=== PATIENT | male | born 1970 | race Caucasian/White ===

== ENCOUNTER 2023-04-25 12:10 | Emergency (ER) | payer SELFPAY ==
[2023-04-25 12:11] VITALS: BP 137/95
[2023-04-25] MEDS: ADACEL 0.5 ML IM (14:16)
--- NOTE | 2023-04-25 14:21 | ED.GENMED ---
History of Present Illness
General
Chief Complaint: Fall
Source: patient
Exam Limitations: none
Time Seen by Provider: 04/25/23 12:22
Nursing documentation reviewed up to this point in time: agreed with
Travel History
Have you had any contact with someone who has COVID-19?: No
Do you have any symptoms of coronavirus? Fever > 100 degrees, chills, cough, shortness of breath, sore throat, loss of taste or smell, muscle aches, or headache?: No
History of Present Illness
History of Present Illness:
53-year-old male without significant past medical history presenting to the emergency department after slipping on ice hitting the back of his head. Started to bleed from his head denies any loss of consciousness no nausea vomiting no neck pain no
numbness or weakness no additional concerns. Not on blood thinners.
Review of Systems
Review of Systems
Allergies reviewed?: Yes
All Other Systems: ROS reviewed and negative except as documented in HPI and ROS
Phy Exam
Physical Exam
Physical Exam:
GENERAL: Alert , in no apparent distress
EYE: pupils equal and reactive
NECK: Supple, no significant adenopathy.
ENT: Posterior scalp with 2 parallel lacerations 3 cm each. Subcutaneous in depth. o/p clr, mmm.
CARDIAC: Regular rate and rhythm .
LUNGS: Clear breath sounds bilaterally, no acute respiratory distress, no wheezes/rales/rhonchi
ABDOMEN: Soft, without focal tenderness, no r/g, no cvat
NEUROLOGICAL: Alert and oriented, no focal neuro deficits
SKIN: Warm and dry, skin intact.
MUSCULOSKELETAL: No edema, well perfused.
PSYCH: Normal and appropriate interaction.
Course
Orders/Labs/Results
Orders:
Orders
04/25/23 13:40
Tetanus/Diphth/Acelpertussis [Adacel] 0.5 ml IM .ONCE ONE
Vital Signs
Initial and Last Documented VS:
Initial Vital Signs
Temp Pulse Resp BP Pulse Ox
98.1 F 85 18 137/95 98
04/25/23 12:11 04/25/23 12:11 04/25/23 12:11 04/25/23 12:11 04/25/23 12:11
Last Documented Vital Signs
Temp Pulse Resp BP Pulse Ox
98.1 F 85 18 137/95 98
04/25/23 12:11 04/25/23 12:11 04/25/23 12:11 04/25/23 12:11 04/25/23 12:11
Procedures
Laceration Closure
Middle Posterior Scalp:
Status of Wound: clean
Size of Wound in cm: 6
Description of Wound Edges: sharp
Preparation: cleaned with saline
Anesthesia: 1% Lidocaine with epi
Revision/Debridement: routine- no revision
Wound exploration: explored to base- no FB
Type of Closure: single layer closure
Skin Closure Material: 4-0 chromic gut
Number of sutures: 7
MDM/Problems Addressed
MDM/Problems Addressed:
53-year-old male presenting to the emergency department after a ground-level fall hitting the back of his head denies loss of consciousness nausea vomiting numbness weakness normal neurologic evaluation here does have 2 lacerations to the posterior
scalp a total of 6 cm subcutaneous in depth cleaned thoroughly closed with 7 total absorbable sutures. Stable for outpatient management no signs of internal injury or significant neck injury no additional concerns return precautions given. Given
an updated tetanus shot today.
*Critical Care Note
Total Time (30-74mins, 75-104mins- exclusive of procedures): Not Applicable
ED Attending Note
-
Portions of this chart may have been created with voice recognition software.� Occasional wrong word or��sound alike� substitutions may have occurred due to the inherent limitations of voice recognition software.
Discharge Plan
Departure
Patient Disposition: Home (Routine Discharge)
Date of Disposition: 04/25/23
Time of Disposition: 14:29
Patient with high blood pressure during this ER visit?: No
Condition: Good
Covid-19: Not Applicable
Discharge Problem:
Laceration of scalp
Instructions: Laceration Repair With Stitches (DC)
Referrals:
NONE,* [Family Provider] -
Activity Restrictions/Additional Instructions:
You came to the emergency department today with concerns of a laceration to your scalp. This was closed with 7 absorbable sutures. Please keep the area clean and start using ointment to the area after 7 days to help with this dissolving. Return
to the emergency department for any worsening, new or concerning symptoms.
Interventions
Interventions:
*Risk Screen - Suicide Last Done: 04/25/23 12:11
*General Assessment Last Done: 04/25/23 12:11
*Neglect/Abuse Screening Last Done: 04/25/23 12:11
ED- Neurological Assessment Last Done: 04/25/23 12:43
ED-Skin Assessment Last Done: 04/25/23 12:43
== END 2023-04-25 14:39 | disposition home or self-care (01) ==
LOC: EMR 12:10
PROVIDERS: EMERGENCY PHYSICIAN Emergency Medicine
DX: S01.01XA Laceration without foreign body of scalp, initial encounter (principal); W00.0XXA Fall on same level due to ice and snow, initial encounter; Z23 Encounter for immunization
CPT/HCPCS: 99284; 12002; 90471; 90715